=== PATIENT | female | born 1995 | race African-American/Black ===

== ENCOUNTER 2017-08-17 09:48 | Emergency (ER) | payer MEDICAID ==
[~2017-08-17] VITALS: Ht 149.9 cm; Wt 70.3 kg
[2017-08-17 10:07] VITALS: BP 120/68
[2017-08-17] MEDS ORDERED: LIDOCAINE 2%HCL (LOCAL ANESTH.) INJ 20ML MDV IJ ONE (11:00)
== END 2017-08-17 11:20 | disposition home or self-care (01) ==
LOC: ER 09:48
DX: L02.416 Cutaneous abscess of left lower limb (principal)
CPT/HCPCS: 10060

== ENCOUNTER 2017-08-19 12:53 | Emergency (ER) | payer MEDICAID ==
[~2017-08-19] VITALS: Ht 149.9 cm; Wt 69.4 kg
[2017-08-19 13:10] VITALS: BP 113/61
== END 2017-08-19 16:43 | disposition left against medical advice (07) ==
LOC: ER 12:53
DX: L02.416 Cutaneous abscess of left lower limb (principal); Z48.01 Encounter for change or removal of surgical wound dressing; Z53.21 Procedure and treatment not carried out due to patient leaving prior to being seen by health care provider

== ENCOUNTER 2018-12-21 08:51 | Emergency (ER) | payer MEDICAID ==
[~2018-12-21] VITALS: Ht 149.9 cm; Wt 70.3 kg
[2018-12-21 13:17] VITALS: BP 112/68
== END 2018-12-21 14:41 | disposition home or self-care (01) ==
LOC: EDSEX 08:51 → EDBD 08:51 → ER 08:55
DX: J01.90 Acute sinusitis, unspecified (principal); N39.0 Urinary tract infection, site not specified; J45.909 Unspecified asthma, uncomplicated
CPT/HCPCS: 71046; 81025

== ENCOUNTER 2019-05-12 20:56 | Emergency (ER) | payer MEDICAID ==
[~2019-05-12] VITALS: Ht 149.9 cm; Wt 70.8 kg
[2019-05-12 22:25] LABS: Basophils # (auto) 0.1 uL; Eosinophils # (auto) 0.7 uL; Eosinophils % (auto) 5.4 % (0.0-7.0); Hematocrit 43.8 % (36.0-46.0); Lymphocytes % (auto) 32.9 % (10.0-50.0); Mean Corpuscular Hemoglobin 31.8 pg (28.0-32.0); Mean Corpuscular Hgb Conc. 34.1 g/dL (32.0-36.0); Mean Corpuscular Volume 93.3 fL (80.0-100.0); Monocytes # (auto) 0.9 uL; Monocytes % (auto) 7.3 % (0.0-12.0); Neutrophils # (auto) 6.6 uL; Neutrophils % (auto) 53.4 % (37.0-80.0); Nucleated Red Blood Cells % 0.1 %; Platelet Count (auto) 284 10^3/uL (140-450); Red Cell Distribution Width 12.6 % (11.8-14.3); White Blood Cell 12.3 10^3/uL (4.4-10.8)
[2019-05-12 22:42] LABS: Albumin 3.6 g/dL (3.4-5.0); Anion Gap 8 (5-15); BUN/Creatinine Ratio 17.3; Blood Urea Nitrogen 14 mg/dL (7-18); Calcium 8.5 mg/dL (8.5-10.1); Carbon Dioxide 23 mmol/L (21-32); Chloride 108 mmol/L (98-107); GFR African American 111 mL/min; GFR Non-African American 92 mL/min; Glucose 73 mg/dL (74-106); Magnesium 2.2 mg/dL (1.6-2.6); Potassium 3.5 mmol/L (3.5-5.1); Sodium 139 mmol/L (136-145)
[2019-05-12 22:44] LABS: INR 0.97 (0.9-1.15); Partial Thromboplastin Time 28.4 sec (23.64-32.05)
[2019-05-12 22:48] LABS: Alanine Aminotransferase 32 U/L (13-56); Alkaline Phosphatase 98 U/L (45-117); Aspartate Aminotransferase 19 U/L (15-37); Bilirubin, Total 0.3 mg/dL (0.2-1.0); Total Protein 7.9 g/dL (6.4-8.2)
[2019-05-12 23:07] VITALS: BP 105/52
[2019-05-12 23:56] LABS: Urine Bacteria FEW /hpf (None Seen); Urine Blood Negative /uL (Negative); Urine Mucus FEW (None Seen); Urine Specific Gravity 1.017 (1.001-1.035); Urine WBC 7 /hpf (0 - 5)
[2019-05-12 23:58] LABS: Urine Pregnacy Test Negative (Negative)
[2019-05-13 00:08] LABS: Amphetamine Screen, Urine NEGATIVE (NEGATIVE); Barbiturate Scree,Urine NEGATIVE (NEGATIVE); Benzodiazephine Screen, Urine NEGATIVE (NEGATIVE); Cannabinoid Screen, Urine NEGATIVE (NEGATIVE); Cocaine Screen, Urine NEGATIVE (NEGATIVE)
[2019-05-13 00:09] LABS: Alcohol, Urine < 3.0 mg/dL (0-5); Opiate Scree,Urine NEGATIVE (NEGATIVE); Phencyclidine Screen, Urine NEGATIVE (NEGATIVE)
== END 2019-05-13 00:52 | disposition home or self-care (01) ==
LOC: EDBD 20:56 → ER 20:56
DX: I47.1 Supraventricular tachycardia (principal); N39.0 Urinary tract infection, site not specified; J45.909 Unspecified asthma, uncomplicated
CPT/HCPCS: 36415; 71045; 80053; 80307; 81001; 81025; 83735; 83880; 84443; 84484; 85025; 85610; 85730; 93005

== ENCOUNTER 2023-07-30 08:35 | Emergency (ER) | payer MEDICAID, OTHER ==
[~2023-07-30] VITALS: Ht 149.9 cm; Wt 103.9 kg
[~2023-07-30 08:35] MED LIST: CYCL-839 PO; IBUP-1455 PO
[2023-07-30 09:17] VITALS: BP 107/64; PULSE 10; RESP 20; TEMP 98; O2SAT 100
[2023-07-30 10:51] LABS: Basophils # (auto) 0 10 ^3/uL (0-0.2); Basophils % (auto) 0.5 % (0.0-2.0); Eosinophils # (auto) 0.1 10 ^3/uL (0-0.8); Eosinophils % (auto) 1.5 % (0.0-7.0); Hemoglobin 14.5 g/dL (12.2-16.2); Lymphocytes % (auto) 22.5 % (10.0-50.0); Mean Corpuscular Hemoglobin 32.3 pg (28.0-32.0); Mean Corpuscular Hgb Conc. 34.5 g/dL (32.0-36.0); Mean Corpuscular Volume 93.6 fL (80.0-100.0); Monocytes # (auto) 0.6 10 ^3/uL (0-1.3); Monocytes % (auto) 6.6 % (0.0-12.0); Neutrophils # (auto) 6.2 10 ^3/uL (1.6-8.6); Neutrophils % (auto) 68.9 % (37.0-80.0); Nucleated Red Blood Cells % 0.1 %; Red Blood Cells 4.49 10^6/uL (4.0-5.20); Red Cell Distribution Width 12.8 % (11.8-14.3)
[2023-07-30 12:57] LABS: Alanine Aminotransferase 35 U/L (7-40); Albumin 4.4 g/dL (3.2-4.8); Alkaline Phosphatase 100 U/L (46-116); Anion Gap 10 (5-15); Aspartate Aminotransferase 29 U/L (13-40); BUN/Creatinine Ratio 9.9 (10.0-20.0); Blood Urea Nitrogen 8 mg/dL (9-23); Calcium 9.4 mg/dL (8.5-10.1); Carbon Dioxide 22 mmol/L (20-30); Chloride 107 mmol/L (98-107); Glucose 78 mg/dL (74-106); Potassium 3.7 mmol/L (3.5-5.1); Sodium 139 mmol/L (136-145)
[2023-07-30 12:58] LABS: Bilirubin, Total 0.5 mg/dL (0.2-1.0); Total Protein 7.8 g/dL (5.7-8.2)
[2023-07-30] MEDS ORDERED: [UNRECOGNIZED DRUG - CODE] EX (13:29)
[2023-07-30] MEDS ORDERED: ALBUAER3 IN (13:29)
[2023-07-31 07:07] LABS: RPR Non Reactive (Non Reactive)
[2023-07-31 22:06] LABS: Chlamydia Trachomatis, NAA Negative (Negative); Neisseria gonorrhoeae, NAA Negative (Negative)
== END 2023-07-30 13:43 | disposition home or self-care (01) ==
LOC: ER 08:35
DX: R06.02 Shortness of breath (principal); L20.9 Atopic dermatitis, unspecified; J45.909 Unspecified asthma, uncomplicated; Z32.02 Encounter for pregnancy test, result negative
CPT/HCPCS: 36415; 71045; 80053; 81025; 84484; 85025; 86592; 86703; 93005

== ENCOUNTER 2024-01-12 18:40 | Emergency (ER) | payer OTHER ==
[~2024-01-12] VITALS: Ht 149.9 cm; Wt 110.0 kg
[~2024-01-12 18:40] MED LIST changes: +ALBUAER3 IN; +[UNRECOGNIZED DRUG - CODE] EX
[2024-01-12 19:09] LABS: Basophils # (auto) 0 10 ^3/uL (0-0.2); Basophils % (auto) 0.2 % (0.0-2.0); Eosinophils # (auto) 0.5 10 ^3/uL (0-0.8); Eosinophils % (auto) 2.7 % (0.0-7.0); Hematocrit 45.2 % (36.0-46.0); Hemoglobin 14.8 g/dL (12.2-16.2); Lymphocytes # (auto) 3.2 10 ^3/uL (0.4-5.4); Lymphocytes % (auto) 18.7 % (10.0-50.0); Mean Corpuscular Hemoglobin 31.5 pg (28.0-32.0); Mean Corpuscular Hgb Conc. 32.7 g/dL (32.0-36.0); Mean Corpuscular Volume 96.5 fL (80.0-100.0); Monocytes % (auto) 5.6 % (0.0-12.0); Neutrophils # (auto) 12.6 10 ^3/uL (1.6-8.6); Neutrophils % (auto) 72.8 % (37.0-80.0); Red Blood Cells 4.69 10^6/uL (4.0-5.20); Red Cell Distribution Width 13.1 % (11.8-14.3); White Blood Cell 17.3 10^3/uL (4.4-10.8)
[2024-01-12 19:19] LABS: Chloride 106 mmol/L (98-107); Potassium 3.9 mmol/L (3.5-5.1); Sodium 139 mmol/L (136-145)
[2024-01-12 19:20] LABS: Anion Gap 6 (5-15); Carbon Dioxide 27 mmol/L (20-30)
[2024-01-12 19:25] LABS: BUN/Creatinine Ratio 12.5 (10.0-20.0); Blood Urea Nitrogen 12 mg/dL (9-23); Glucose 92 mg/dL (74-106)
[2024-01-12] MEDS: ONDANSETRON HCL 4 MG/2 ML VIAL IV ONE (20:04)
[2024-01-12] MEDS: SODIUM CHLORIDE 0.9% 1,000 ML IV ONE (20:04)
[2024-01-12] MEDS ORDERED: ZOFR4T PO (21:06)
[2024-01-12 21:34] VITALS: BP 106/46; PULSE 82; RESP 16; O2SAT 98
== END 2024-01-12 22:21 | disposition home or self-care (01) ==
LOC: EDBD 18:40 → ER 18:40
DX: R19.7 Diarrhea, unspecified (principal); R10.2 Pelvic and perineal pain; R53.1 Weakness; R42 Dizziness and giddiness; J45.909 Unspecified asthma, uncomplicated
CPT/HCPCS: 36415; 74176; 80048; 84702; 85025; 96361; 96374; 99285; J2405; J7030